=== PATIENT | female | born 2000 | race Caucasian/White ===

== ENCOUNTER 2022-03-13 15:16 | Outpatient (CLI) | payer OTHER ==
[2022-03-13 16:59] LABS: Hemoglobin 13.3 g/dL (12.0-15.5); Mean Corpuscular HGB CONC 33.9 g/dL (32.0-36.0); Mean Corpuscular Hemoglobin 29.2 pg (27.0-33.0); Mean Corpuscular Volume 86.2 fl (81.6-98.3); Mean Platelet Volume 11.2 fl (7.4-10.4); Platelet Count 338 10x3/uL (150-450); RBC Distribution Width 12.5 % (11.5-14.5); Red Blood Cell (RBC) Count 4.55 10x6/uL (3.90-5.03); White Blood Cell (WBC) Count 5.9 10x3/uL (3.5-10.5)
[2022-03-13 17:17] LABS: Anion Gap 12 mmol/L (10-20); BUN (Urea Nitrogen) 14 mg/dL (7.0-18.7); Calc. Creatinine Clearance 0 mL/min (70-130); Calcium 9.3 mg/dL (7.8-10.44); Carbon Dioxide 24 mmol/L (22-29); Chloride 105 mmol/L (98-107); Estimated GFR 110; Glucose 89 mg/dL (70-105); Potassium 4.1 mmol/L (3.5-5.1); Sodium 137 mmol/L (136-145)
[2022-03-13 17:25] LABS: BHCG - Serum Negative (NEGATIVE); Pregs Control Background? CLEAR/WHITE (CLR/WHITE); Pregs Control Bar Appear? YES (CONTROL BAR)
== END 2022-03-13 15:17 | disposition home or self-care (01) ==
LOC: CSHLAB 15:16
PROVIDERS: ATTEND Podiatrist Foot & Ankle Surgery
DX: Z01.812 Encounter for preprocedural laboratory examination (principal); Z20.822 Contact with and (suspected) exposure to COVID-19; M21.611 Bunion of right foot
CPT/HCPCS: 80048; 84703; 85027; 87811

== ENCOUNTER 2022-03-16 08:20 | Day surgery (SDC) | payer OTHER ==
[2022-03-16] MEDS ORDERED: Lidocaine 1% PF 5 ML VIAL ONE (08:30)
[2022-03-16] MEDS ORDERED: Ondansetron PF 4 MG/2 ML Vial ONE (08:30)
[2022-03-16] MEDS ORDERED: PROPOFOL 20 ML ONE (08:30)
[2022-03-16] MEDS ORDERED: Neomycin-Polymyxin 1 ML AMP ONE (08:45)
[2022-03-16] MEDS ORDERED: Bupivacaine PF 0.5% 30 ML VIAL ONE (08:45)
[2022-03-16] MEDS ORDERED: Lidocaine 1% MPF 2 ML VIAL ONE (08:46)
[2022-03-16] MEDS ORDERED: CEFAZOLIN 2 GM VIAL ONE (08:53)
[2022-03-16] MEDS ORDERED: Fentanyl 100 MCG/2 ML VIAL ONE (09:08)
[2022-03-16] MEDS ORDERED: Midazolam HCl 2 mg/2 ml Vial ONE (09:08)
[2022-03-16] MEDS ORDERED: Ketorolac Tromethamine 30 MG/ML VIAL ONE (10:15)
== END 2022-03-16 11:10 | disposition home or self-care (01) ==
LOC: CSHSDC 08:20
PROVIDERS: ATTEND Podiatrist Foot & Ankle Surgery
PROC: 0QSN04Z Reposition Right Metatarsal with Internal Fixation Device, Open Approach (ICD-10-PCS; principal; 2022-03-16)
DX: M21.611 Bunion of right foot (principal); M20.11 Hallux valgus (acquired), right foot; Z79.899 Other long term (current) drug therapy
CPT/HCPCS: C1713; C1769; J0690; J1885; J2250; J2405; J2704; J3010; S0020

== ENCOUNTER 2022-03-23 13:45 | Outpatient (CLI) | payer OTHER ==
[2022-03-14 13:50] VITALS: BMI 26.2
== END 2022-03-23 13:46 | disposition home or self-care (01) ==
LOC: CSHULT 13:45
PROVIDERS: ATTEND Nurse Practitioner Family
DX: N83.202 Unspecified ovarian cyst, left side (principal); N83.201 Unspecified ovarian cyst, right side